=== PATIENT | female | born 1995 | race African-American/Black ===

== ENCOUNTER 2017-04-04 19:51 | Emergency (ER) | payer MEDICAID ==
[~2017-04-04] VITALS: Ht 162.6 cm; Wt 77.1 kg
[2017-04-04 20:45] LABS: Urine Bilirubin Negative (Negative); Urine Color Brown (Yellow); Urine Glucose Normal (Normal); Urine Ketone Negative (Negative); Urine Mucus FEW (None Seen); Urine RBC 1754 /hpf (0 - 4); Urine Squamous Epithelial Cell FEW /hpf (<5); Urine Urobilinogen Normal (Negative)
[2017-04-04 20:53] LABS: Urine Blood 3+ /uL (Negative); Urine Nitrite POSITIVE (Negative)
[2017-04-04 21:07] VITALS: BP 129/82
[2017-04-04] MEDS: cefTRIAXone SOD 1,000 MG VL IM ONE (21:37)
== END 2017-04-04 22:12 | disposition home or self-care (01) ==
LOC: ER 19:59
DX: N39.0 Urinary tract infection, site not specified (principal)
CPT/HCPCS: 81001; 81025; 96372; 99284; J0696

== ENCOUNTER 2017-07-06 22:27 | Emergency (ER) | payer SELFPAY ==
[~2017-07-06] VITALS: Ht 162.6 cm; Wt 77.1 kg
[2017-07-06 23:37] LABS: Urine Bilirubin Negative (Negative); Urine Blood Negative /uL (Negative); Urine Color Yellow (Yellow); Urine Glucose Normal (Normal); Urine Ketone Negative (Negative); Urine Mucus FEW (None Seen); Urine Nitrite Negative (Negative); Urine RBC 4 /hpf (0 - 4); Urine Squamous Epithelial Cell FEW /hpf (<5); Urine Urobilinogen Normal (Negative)
[2017-07-07] VITALS: BP 120/68
[2017-07-07] MEDS ORDERED: cefTRIAXone SOD 1,000 MG VL ONE (00:36)
[2017-07-07] MEDS ORDERED: cefTRIAXone SOD 1,000 MG VL IM ONE (00:45)
== END 2017-07-07 00:47 | disposition home or self-care (01) ==
LOC: ER 22:27
DX: N39.0 Urinary tract infection, site not specified (principal)
CPT/HCPCS: 81001; 81025; 96372; 99284; J0696

== ENCOUNTER 2024-12-01 19:48 | Emergency (ER) | payer MEDICAID ==
[~2024-12-01] VITALS: Ht 162.6 cm; Wt 90.2 kg
[2024-12-01 19:48] VITALS: BP 129/73
--- NOTE | 2024-12-01 20:39 | ED.PDOC ---
Eye-HPI HPI Comments 29 y/o F, presents to the ED for CC of throat pain. Patient states, that she has been experiencing throat pain with associated cough and bloody sputum since last night (11/30/24). Patient endorses new symptoms, of weakness, body-aches, sore throat, and congestion since this morning (12/01/24). Patient denies fever, chills, weakness, fatigue, or nausea. No other symptoms or modifying factors at this time. Time Seen by MD: 20:30 Primary Care Provider: UNKNOWN Reviewed Notes: Nurses Notes, Medications, Allergies Allergies: Coded Allergies: NO KNOWN ALLERGIES (Unverified , 07/14/14) Information Source: Patient Mode of Arrival: Ambulatory Timing: Hours Duration: Since onset Prehospital treatment: None Quality: Pain, Red, Discharge Lids: Normal Conjunctiva: Normal Cornea: Normal Pupils: Normal EOM: Normal Slit lamp exam: Normal Anterior chamber: Normal Mouth Location: Pharynx ENT Ear Exam: Normal Nose: Normal Sinuses: Normal Oropharynx: Tonsillar hypertrophy Onset: Spontaneous Throat Exposed to: None History of: None Last Tetanus: Unknown Modifying factors: Nothing Associated signs and symptoms: Nasal Symptoms, Sore Throat Past Medical History PAST MEDICAL HISTORY: UTI'S Surgical History: Denies all surgeries RELATIONSHIP MANAGEMENT LEAD History: No Pertinent RELATIONSHIP MANAGEMENT LEAD History Family History Family History: Unknown Social History Smoker: Non-Smoker Alcohol: Denies ETOH Use Drugs: Marijuana Lives In: Home Constitutional: reports: weakness; denies: chills, diaphoresis, fatigue, fever, malaise, sweats, others EENTM: reports: mouth pain, nose congestion, throat pain; denies: blurred vision, double vision, ear bleeding, ear discharge, ear drainage, ear pain, ear ringing, eye pain, eye redness, hearing loss, mouth swelling, nasal discharge, nose bleeding, nose pain, photophobia, tearing, throat swelling, voice changes, others Respiratory: denies: cough, hemoptysis, orthopnea, SOB at rest, shortness of breath, SOB with excertion, stridor, wheezing, others Cardiovascular: denies: chest pain, dizzy spells, diaphoresis, Dyspnea on exertion, edema, irregular heart beat, left arm pain, lightheadedness, palpitations, PND, syncope, others Gastrointestinal: denies: abdomen distended, abdominal pain, blood streaked bowels, constipated, diarrhea, dysphagia, difficulty swallowing, hematemesis, melena, nausea, poor appetite, poor fluid intake, rectal bleeding, rectal pain, vomiting, others Genitourinary: denies: abnormal vagina bleeding, burning, dyspareunia, dysuria, flank pain, frequency, hematuria, incontinence, pain, , vagina discharge, urgency, others Neurological: denies: dizziness, fainting, headache, left sided numbness, left sided weakness, numbness, paresthesia, pre-existing deficit, right sided numbness, right sided weakness, seizure, speech problems, tingling, tremors, weakness, others Musculoskeletal: denies: back pain, gout, joint pain, joint swelling, muscle pain, muscle stiffness, neck pain, others Integumetry: denies: bruises, change in color, change in hair/nails, dryness, laceration, lesions, lumps, rash, wounds, others Allergic/Immunocompromised: denies: Difficulty Healing, Frequent Infections, Hives, Itching, others Hematologic/Lymphatic: denies: anemia, blood clots, easy bleeding, easy bruising, swollen glands, others Endocrine: denies: excessive hunger, excessive sweating, excessive thirst, excessive urination, flushing, intolerance to cold, intolerance to heat, unexplained weight gain, unexplained weight loss, others Psychiatric: denies: anxiety, bipolar disorder, depression, hopeless, panic disorder, schizophrenia, sleepless, suicidal, others All Other Systems: Reviewed and Negative Physical Exam General Appearance: No Apparent Distress, Normal HEENT: Tonsillar Exudate (tonsil 3+, Positive Exudate) Neck: Full Range of Motion, Non-Tender, Normal, Normal Inspection Respiratory: Chest Non-Tender, Lungs Clear, No Accessory Muscle Use, No R espiratory Distress, Normal Breath Sounds Cardiovascular: No Edema, No JVD, No Murmur, No Gallop, Normal Peripheral Pulses, Regular Rate/Rhythm Breast Exam: Deferred Gastrointestinal: No Organomegaly, Non Tender, No Pulsatile Mass, Normal Bowel Sounds, Soft Genitalia: Deferred Pelvic: Deferred Rectal: Deferred Extremities: No calf tenderness, Normal capillary refill, Normal inspection, Normal range of motion, Non-tender, No pedal edema Musculoskeletal : Apperance: Normal Neurologic: Alert, store receiver II-XII nml as Tested, No Motor Deficits, Normal Affect, Normal Mood, No Sensory Deficits Cerebellar Function: Normal Reflexes: Normal Skin: Dry, Normal Color, Warm Lymphatic: No Adenopathy Was a procedure done? Was a procedure done?: No EENT DIFF Eye: N/A Mouth: Other (tonsillitis) Sore Throat: Streptococcal, Viral Pharyngitis, URI X-Ray, Labs, Meds, VS Vital Signs Date Time Temp Pulse Resp B/P (MAP) Pulse Ox O2 Delivery O2 Flow Rate FiO2 12/01/24 19:48 100.2 112 18 129/73 (91) 97 100.2 X-Ray, Labs, Meds, VS Comment Imaging: X-rays and CT scans were reviewed and interpreted by this provider, imaging shows no fractures and no pathological disease. Pending radiology edelmira shaver. Laboratory: Labs reviewed and interpreted by this provider. No significant abnormalities noted. Patient has prior medical visits reviewed. Med reconciliation performed Vital signs reviewed Time of 1ST Reevaluation: 21:00 Reevaluation 1ST: Unchanged Patient Education/Counseling: Diagnosis, Treatment, Need For Follow Up (Follow up in the emergency department in the next 24-48 hours if symptoms worsen. It was advised to follow up with your primary care doctor in the next 3-4 days for further evaluation.) Family Education/Counseling: No Family Present Departure 1 Departure Time of Disposition: 21:06 Impression: Primary Impression: Pharyngitis Qualified Codes: J02.0 - Streptococcal pharyngitis Disposition: HOME / SELF CARE / HOMELESS Condition: Fair e-Prescriptions Amoxicillin Trihydrate (Amoxicillin) 875 Mg Tab 1 TAB PO BID for 7 Days, #14 TAB Prov: JESUSITA CH 12/01/24 Discharged With: Self Critical Care Note Critical Care Time?: No Stability Stability form required: No Heart Score Heart Score: Heart Score Response (Comments) Value History N/A 0 EKG N/A 0 Age N/A 0 Risk Factors N/A 0 Troponin N/A 0 Total 0 I personally scribed for JESUSITA CH ([email or web address]) on 12/01/24 at 20:39. Electronically submitted by Helena Crum ([email or web address]). JESUSITA CH Dec 01, 2024 20:39
[2024-12-01] MEDS ORDERED: AMOX875T3 PO (21:07)
[2024-12-01 21:15] VITALS: TEMP 100.2
[2024-12-01] MEDS: ACETAMINOPHEN 325 MG TAB PO ONE (21:15)
[2024-12-01 21:20] VITALS: PULSE 112; RESP 12; O2SAT 97
== END 2024-12-01 21:20 | disposition home or self-care (01) ==
LOC: ER 19:48
DX: J02.9 Acute pharyngitis, unspecified (principal)

== ENCOUNTER 2025-02-04 13:23 | Emergency (ER) | payer OTHER, MEDICAID ==
[~2025-02-04] VITALS: Ht 162.6 cm; Wt 91.5 kg
[~2025-02-04 13:23] MED LIST: AMOX875T3 PO
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
[2025-02-04 14:12] VITALS: BP 136/91; PULSE 74; RESP 20; TEMP 98.5; O2SAT 100
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
[2025-02-04] MEDS ORDERED: METH-1182 PO (15:03)
[2025-02-04] MEDS ORDERED: IBUP-1456 PO (15:03)
== END 2025-02-04 15:23 | disposition home or self-care (01) ==
LOC: ER 13:23
DX: S16.1XXA Strain of muscle, fascia and tendon at neck level, initial encounter (principal); Z87.440 Personal history of urinary (tract) infections; V89.2XXA Person injured in unspecified motor-vehicle accident, traffic, initial encounter; Y93.I9 Activity, other involving external motion; Y92.488 Other paved roadways as the place of occurrence of the external cause; Y99.8 Other external cause status
CPT/HCPCS: 71046; 72040

== ENCOUNTER 2025-05-26 09:08 | Emergency (ER) | payer MEDICAID ==
[~2025-05-26] VITALS: Ht 162.6 cm; Wt 97.9 kg
[~2025-05-26 09:08] MED LIST changes: +IBUP-1456 PO; +METH-1182 PO
[2025-05-26] MEDS ORDERED: AZIT500T66 PO (09:38)
[2025-05-26] MEDS ORDERED: LIDO2SOL26 MT (09:38)
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
[2025-05-26 09:42] VITALS: BP 114/85; PULSE 75; RESP 20; TEMP 97.8; O2SAT 99
--- NOTE | 2025-05-26 18:35 | ECG ---
[facility] Test Date: 2025-05-26 Test Time: 09:16:08 Pat Name: BUD PELLETIER Department: ED Room: Gender: F [employer]: ER : 1995 Requested By: JUAN MANUEL RANDALL Order Number: [id number] Reading MD: Measurements Intervals [place] Rate: 74 P: 45 CT: 127 QRS: -18 QRSD: 86 T: 6 QT: 381 QTc: 423 Interpretive Statements Sinus rhythm Borderline left axis deviation Low voltage, precordial leads Please click the below link to view image of tracing.
== END 2025-05-26 09:44 | disposition home or self-care (01) ==
LOC: ER 09:08
DX: J03.90 Acute tonsillitis, unspecified (principal); Z79.899 Other long term (current) drug therapy
CPT/HCPCS: 93005